=== PATIENT | male | born 1990 ===

== ENCOUNTER 2021-07-13 18:23 | Emergency (ER) | payer SELFPAY ==
[~2021-07-13] VITALS: Ht 175.3 cm; Wt 72.7 kg
[2021-07-13 18:27] VITALS: BP 120/64
== END 2021-07-13 18:41 ==
LOC: ER 18:23
DX: S40.812A Abrasion of left upper arm, initial encounter (principal); S40.811A Abrasion of right upper arm, initial encounter; S80.812A Abrasion, left lower leg, initial encounter; S80.811A Abrasion, right lower leg, initial encounter; F15.90 Other stimulant use, unspecified, uncomplicated; Z59.00 Homelessness unspecified; X58.XXXA Exposure to other specified factors, initial encounter; Y93.89 Activity, other specified; Y92.89 Other specified places as the place of occurrence of the external cause; Y99.8 Other external cause status
CPT/HCPCS: 99283